=== PATIENT | female | born 1995 | race Caucasian/White ===

== ENCOUNTER 2021-02-09 00:12 | Emergency (ER) | payer OTHER, SELFPAY ==
[2021-02-09 00:25] VITALS: BP 0/0; PULSE 0; RESP 0; TEMP -17.7; TEMP 0; O2SAT 0
--- NOTE | 2021-02-09 00:27 | PC.NURSE ---
pt elected to [facility]BS when she was told her visitor couldn't come back with her to the ED by registration. we were notified via registration of the elopement after she walked out
== END 2021-02-09 00:27 | disposition left against medical advice (07) ==
LOC: ER 00:22
PROVIDERS: Emergency Provider Emergency Medicine
DX: Z53.21 Procedure and treatment not carried out due to patient leaving prior to being seen by health care provider (principal)
CPT/HCPCS: 99211